=== PATIENT | female | born 1995 | race Hispanic/Latino ===

== ENCOUNTER 2021-03-03 09:00 | Inpatient (IN) | payer OTHER ==
[2021-03-03] MEDS ORDERED: LACTATED RINGERS 2,000 ML ONE (09:05)
--- NOTE | 2021-03-03 09:18 | Anesthesia Day of Surgery ---
Anesthesia Day of Surgery - Day of Surgery Patient Examined: Yes Patient H&P Reviewed: Yes Patient is NPO: Yes Beta Blockers: No Cardiac Clearance: No Pulmonary Clearance: No Alex's Test: N/A
[2021-03-03] MEDS ORDERED: ONDANSETRON 4 MG/2 ML INJ IV PRN (09:30)
[2021-03-03] MEDS ORDERED: PROMETHAZINE 25 MG TAB PO PRN (09:30)
[2021-03-03] MEDS ORDERED: NALOXONE 0.4 MG/1 ML INJ IV PRN ×2 (09:30→14:00)
[2021-03-03] MEDS ORDERED: NalbUPHINE 10 MG/1 ML INJ IV PRN (09:30)
[2021-03-03] MEDS ORDERED: HYDROmorphone 1 MG/1 ML INJ IV PRN (09:30)
[2021-03-03] MEDS ORDERED: PROMETHAZINE 25 MG RECT SUPP PR PRN (09:30)
[2021-03-03] MEDS ORDERED: OXYTOCIN DRIP 30,000 MILLIUNITS/500 ML BAG IV ONE (10:17)
[2021-03-03] MEDS ORDERED: METOCLOPRAMIDE 10 MG/2 ML INJ ONE (10:17)
[2021-03-03] MEDS ORDERED: GENTAMICIN/NS 80 MG/100 ML 100 ML IV ONE ×2 (10:17→10:18)
[2021-03-03] MEDS ORDERED: FAMOTIDINE 20 MG/2 ML INJ IV ONE ×2 (10:17→10:30)
[2021-03-03] MEDS ORDERED: BICITRA ORAL LIQD 30ML ONE (10:17)
[2021-03-03] MEDS ORDERED: LACTATED RINGERS 1,000 ML IV SCH (10:30)
[2021-03-03] MEDS ORDERED: METOCLOPRAMIDE 10 MG/2 ML INJ IV ONE (10:30)
[2021-03-03] MEDS ORDERED: GENTAMICIN 80 MG in SODIUM CHLORIDE 0.9% 100 ML IV ONE (10:30)
[2021-03-03] MEDS ORDERED: GENTAMICIN/NS 80 MG/100 ML 100 ML IV SCH (10:30)
[2021-03-03] MEDS ORDERED: BICITRA ORAL LIQD 30ML PO NR (10:30)
[2021-03-03 10:37] LABS: Basophils # (Auto) 0.1 K/mm3 (0.0-0.1); Eosinophils # (Auto) 0.1 K/mm3 (0.0-0.4); Eosinophils % (Auto) 0.5 % (0.0-4.3); Hematocrit 36.7 % (30.3-42.9); Lymphocytes # (Auto) 2.7 K/mm3 (1.2-5.4); Lymphocytes % (Auto) 22.2 % (13.4-35.0); Mean Corpuscular HGB Conc 33 % (30-34); Mean Corpuscular Volume 88 fl (79-97); Monocytes # (Auto) 0.9 K/mm3 (0.0-0.8); Monocytes % (Auto) 7.7 % (0.0-7.3); Platelet Count 230 K/mm3 (140-440); Red Blood Count 4.15 M/mm3 (3.65-5.03); Red Cell Distribution Width 13.5 % (13.2-15.2)
[2021-03-03] MEDS ORDERED: OXYTOCIN DRIP 30 UNITS/500 ML BAG IV SCH ×2 (11:00→14:00)
--- NOTE | 2021-03-03 11:17 | History and Physical Report ---
History of Present Illness Date of examination: 03/03/21 Date of admission: 03/03/21 09:00 Chief complaint: PREVIOUS History of present illness: The patient is a 25-year-old female 2 para 1-0-0-1. Last menstrual period 06/02/2020 with a EDC of 03/09/2021. She had 9 visits at the office she had a previous section she desires have to have a repeat section. At the office her blood type was O+ antibody screen was negative hematocrit was 40% rubella was immune VDRL was nonreactive Pap smear was normal urine culture negative hepatitis B was negative HIV test was negative platelet count was 2 urine 310,000. Vitamin D was 33.6 Chlamydia and gonorrhea tests were both negative she had an ultrasound done at 12.5 weeks on 08/25/2020 which is consistent with her due date her MSAFP was negative she had a repeat ultrasound done on 10/23/2020 consistent with 20.5 weeks gestation her VDRL was nonreactive gonorrhea was negative chlamydia was negative at 36 weeks group B strep test was positive HIV test was negative trichomonas test was negative. She has been taking clindamycin terconazole. Family medical history is positive for major depression in her mother hypertension in her maternal grandmother and mother all her surgery for her was a previous section and a tonsillectomy no medical problems for this patient Ketamine was age 11 mm. Her 28 days this is her second first was term was delivered by primary section in 2019 baby weighed 7.4 pounds under spinal because of heart tones decelerated and was done at this hospital. The patient denies substance abuse she does do vaping She is 39 weeks at this time. Past History Past Surgical History: tonsillectomy, section Family/Genetic History: hypertension (Depression), other (DE) Social history: no significant social history, single, smoking - Obstetrical History Expected Date of Delivery: 03/09/21 Actual Gestation: 39 Week(s) 1 Day(s) : 2 Para: 1 Hx # Term Pregnancies: 1 Number of Pregnancies: 0 Medications and Allergies Allergies Allergy/AdvReac Type Severity Reaction Status Date / Time Penicillins Allergy Swelling Unverified 10/11/19 03:18 Home Medications Medication Instructions Recorded Confirmed Last Taken Type HYDROcodone/APAP 5-325 [Moro 1 - 2 each PO Q4HR PRN #30 tablet 10/11/19 Unknown Rx 5/325] Active Meds: Active Medications Citric Acid/Sodium Citrate (Bicitra Oral Liqd 30ml) 30 ml PO ONCE NR Stop: 03/03/21 11:30 Last Admin: 03/03/21 11:00 Dose: 30 ml Documented by: Diphenhydramine HCl (Diphenhydramine 50 Mg/Ml Vial) 12.5 mg IV Q2H PRN PRN Reason: Itching Hydromorphone HCl (Hydromorphone 1 Mg/1 Ml Inj) 0.5 mg IV Q4H PRN PRN Reason: breakthrough pain > 7/10 Lactated Ringer's (Lactated Ringers) 1,000 mls @ 2,250 mls/hr IV PREOP ARTEMIO Stop: 03/04/21 10:57 Oxytocin/Sodium Chloride (Pitocin/Ns 30 Unit/500ml) 30 units in 500 mls @ 0 mls/hr IV TITR ARTEMIO; Protocol Clindamycin HCl (Cleocin 900 Mg/50 Ml) 900 mg in 50 mls @ 100 mls/hr IV PREOP NR; Protocol Stop: 03/03/21 15:00 Gentamicin Sulfate/Sodium Chloride (Gentamicin/Ns 80 Mg/100 Ml) 100 mls @ 200 mls/hr IV PREOP ARTEMIO Stop: 03/03/21 13:00 Nalbuphine HCl (Nalbuphine 10 Mg/1 Ml Inj) 2.5 mg IV Q2H PRN PRN Reason: Itching Naloxone HCl (Naloxone 0.4 Mg/1 Ml Inj) 0.2 mg IV Q2MIN PRN PRN Reason: Res Rate </= 8 or 02 SAT < 92% Ondansetron HCl (Ondansetron 4 Mg/2 Ml Inj) 4 mg IV Q8H PRN PRN Reason: Nausea And Vomiting Promethazine HCl (Promethazine 25 Mg Tab) 25 mg PO Q6H PRN PRN Reason: Nausea And Vomiting Promethazine HCl (Promethazine 25 Mg Rect Supp) 25 mg AK Q6H PRN PRN Reason: Nausea And Vomiting Review of Systems All systems: negative - Vital Signs Vital signs: Vital Signs Pulse BP 100 H 111/77 03/03/21 09:36 03/03/21 09:36 Temp Pulse Resp BP Pulse Ox 98.3 F 81 16 109/75 03/03/21 09:55 03/03/21 10:21 03/03/21 09:55 03/03/21 10:21 - Physical Exam Breasts: Cardiovascular: Regular rate, Normal S1, Normal S2 Lungs: Positive: Clear to auscultation Abdomen: Positive: normal appearance, soft, normal bowel sounds. Negative: distention, tenderness Genitourinary (Female): Positive: normal external genitalia Vulva: both: normal Vagina: Positive: normal moisture. Negative: discharge Cervix: Negative: lesion, discharge Uterus: Positive: normal size, enlarged, normal contour Adnexa: both: normal Anus/Rectum: Positive: normal perianal skin, heme negative. Negative: rectal mass, hemorrhoids Extremities: Positive: normal Deep Tendon Reflex Grade: Normal +2 - Obstetrical FHR: auscultation normal, category 1 Uterine Contraction Monitor Mode: Palpation Uterine Contraction Pattern: Absent Results Result Diagrams: 03/03/21 09:40 Abnormal lab results 03/03/21 Range/Units 09:40 WBC 12.2 H (4.5-11.0) K/mm3 [place] % (Auto) 7.7 H (0.0-7.3) % [place] # (Auto) 0.9 H (0.0-0.8) K/mm3 Seg Neutrophils # 8.4 H (1.8-7.7) K/mm3 All other labs normal. Assessment and Plan Previous section x1 at 39 weeks. Plan repeat low transverse section.
[2021-03-03] MEDS ORDERED: BUPIVACAINE/PF (0.5%) 5 MG/1 ML 30 ML VIAL INFILTRATI ONE (11:43)
[2021-03-03] MEDS ORDERED: dexAMETHasone 20 MG/5 ML VIAL ONE (11:43)
[2021-03-03] MEDS ORDERED: ONDANSETRON 4 MG/2 ML INJ ONE (11:43)
--- NOTE | 2021-03-03 12:28 | Anesthesia Consultation ---
Anesthesia Consult and Med Hx Date of service: 03/03/21 - Airway Anesthetic Teeth Evaluation: Good ROM Head & Neck: Adequate Mental/Hyoid Distance: Adequate Mallampati Class: Class II Intubation Access Assessment: Probably Good - Pulmonary Exam CTA: Yes - Cardiac Exam Cardiac Exam: RRR - Pre-Operative Health Status ASA Pre-Surgery Classification: ASA2 Proposed Anesthetic Plan: Spinal Nerve Block: TAP - Pulmonary Hx Smoking: Yes (Vaping) Hx Asthma: No Hx Respiratory Symptoms: No SOB: No COPD: No Hx Pneumonia: No Hx Sleep Apnea: No - Cardiovascular System Hx Hypertension: No Hx Coronary Artery Disease: No Hx Heart Attack/AMI: No Hx Angina: No Hx Percutaneous Transluminal Coronary Angioplasty (PTCA): No Hx Cardia Arrhythmia: No Hx Pacemaker: No Hx Internal Defibrillator: No Hx Valvular Heart Disease: No Hx Heart Murmur: No Hx Peripheral Vascular Disease: No - Central Nervous System Hx Neuromuscular Disorder: No Hx Seizures: No CVA: No Hx Back Pain: No Hx Psychiatric Problems: No - Gastrointestinal Hx Ulcer: No Hx Gastroesophageal Reflux Disease: Yes - Endocrine Hx Renal Disease: No Hx End Stage Renal Disease: No Hx Cirrhosis: No Hx Liver Disease: No Hx Insulin Dependent Diabetes: No Hx Non-Insulin Dependent Diabetes: No Hx Thyroid Disease: No Hx Hypothyroidism: No Hx Hyperthyroidism: No - Hematic Hx Anemia: No Hx Sickle Cell Disease: No - Other Systems Hx Alcohol Use: No Hx Substance Use: No Hx Cancer: No Hx Obesity: Yes
--- NOTE | 2021-03-03 12:29 | Progress Note ---
Spinal Anesthesia Block - Spinal Anesthesia Block Start Time: 11:52 Stop Time: 12:02 Performed by:: LORNA TADEO (Yrn MADDEN) Procedure: Spinal anesthesia block is being performed for [C/S]. H&P, labs have been reviewed. Patient's questions and concerns have been answered. Informed consent has been performed. Timeout has was performed. Patient in sitting position on side of bed. Sterile prep and drape was performed. 3 mL 1% lid ocaine skin wheal at L [3]-L [4]. Needle introducer advanced. 25-gauge spinal needle advanced, [+] CSF [-] blood. [Marcaine 10mg and Precedex 5mcg] Spinal dose was given. All needles removed. Patient tolerated procedure well.
[2021-03-03] MEDS ORDERED: ePHEDrine SULFATE 50 MG/1 ML INJ ONE (13:04)
[2021-03-03] MEDS ORDERED: PHENYLEPHRINE/NS 1,000 MCG/10 ML SYRINGE (OR USE) IV ONE (13:04)
[2021-03-03] MEDS ORDERED: KETOROLAC 30 MG/1 ML INJ ONE (13:10)
--- NOTE | 2021-03-03 13:24 | Procedure Note ---
Date of procedure: 03/03/21 Pre-op diagnosis: 39 weeks iup. PREVIOIUS Post-op diagnosis: same Procedure: This is Dr. Maldonado dictating operative note on Lisa Montez Indications for surgery was a previous section the uterine incision was hemostatic the anterior abdominal peritoneum was repaired running 2-0 Vicryl subcutaneous tissue repaired running 2-0 chromic 2-0 Vicryl subcutaneous tissue repaired running 2-0 chromic skin was repaired running subcuticular 4-0 Vicryl on a William needle and drape with Dermabond the patient tolerated procedure well she was then returned to recovery room in stable condition end of operative note on this patient. 39 weeks. A liveborn female infant was delivered time of surgery was 38 minutes Apgars 8 9 weight 7 pounds 13.8 ounces estimated blood loss 1087 cc urine production was 100 cc fluids IV was 1550 cc. Complications none . Procedure patient was taken to the operatory given adequate spinal anesthetic for the procedure she was then prepped and draped in usual manner she had an indwelling Lux catheter. She was then prepped and draped in usual fashion timeout was done and we all concurred. We created a Pfannenstiel incision along the previous Pfannenstiel incision and entered the abdominal cavity anatomical ly. Vesicouterine peritoneum was opened transversely with Metzenbaums bladder was bluntly and sharply dissected off the lower uterine segment a low transverse incision made in lower uterine segment with the scalpel. We use a Kiwi suction cup to help deliver the vertex this was delivered without incident oropharynx was suction nasopharynx suction. Cord was doubly clamped and cut fetus passed off the table to the nurses in attendance. Cord blood was obtained placenta was then delivered X abdominally uterine cavity was cleaned of debris membranes and tissue uterine incision was repaired with a running locking #0 chromic in a deep layer. Superficial layer of the myometrium was closed with a running locking #0 chromic suture. All instruments removed from abdominal care instrument count ne edle lap count was Anterior abdominal peritoneum was repaired running 2-0 chromic. Fascia was repaired running 0 Vicryl subcutaneous tissue repaired with running 2-0 Vicryl on a small needle skin was repaired running subcuticular 4-0 Vicryl on a William needle and drape with Dermabond patient tolerated procedure well she was then returned to recovery room in stable condition. Anesthesia: spinal Surgeon: LILIYA MALDONADO Estimated blood loss: other (1087) IV fluids: 1,550 Urine output: 100 Pathology: none Specimen disposition: discarded Condition: stable Disposition: PACU
--- NOTE | 2021-03-03 13:50 | Progress Note ---
Regional Anesthesia Block - Regional Anesthesia Block Start Time: 13:27 Stop Time: 13:35 Performed By:: LORNA TADEO (Yrn MADDEN) Procedure: Patient consented for TAP block for post surgical pain management. Patient identified, monitors placed, and time out performed. Mid axillary TAP identified bilaterally via ultrasound. Skin prepped bilaterally with [chlorhexidine] and [20g stimuplex] needle advanced to the TAP. 30ml [Marcaine 0.25% with 25mcg Precedex and Decadron 5mg] injected under ultrasound guidance on the [left] side. 30ml [Marcaine 0.25% with 25mcg Precedex and Decadron 5mg] injected under ultrasound guidance on the [right] side. Negative aspiration every 5mL, Patient tolerated the procedure well. No apparent complications seen.
[2021-03-03] MEDS ORDERED: WITCH HAZEL/ GLYCERIN PAD TP PRN (14:00)
[2021-03-03] MEDS ORDERED: HYDROcodone/ACETAMINOPHEN 5-325 MG TAB PO PRN (14:00)
[2021-03-03] MEDS: MORPHINE 4 MG/1 ML INJ IV PRN ×2 (16:04→20:48)
[2021-03-04 00:37] LABS: Hematocrit 32.8 % (30.3-42.9)
[2021-03-04] MEDS: MORPHINE 4 MG/1 ML INJ IV PRN (05:59)
[2021-03-04] MEDS: IBUPROFEN 800 MG TAB PO PRN ×3 (07:40→22:06)
[2021-03-04] MEDS: FERROUS SULFATE 325 MG TAB PO SCH (09:37)
[2021-03-04] MEDS: LANOLIN/ZINC/DIMETHICONE (LANSINOH) 7 GM TP PRN (09:37)
--- NOTE | 2021-03-04 11:13 | Progress Note ---
Assessment and Plan A: POD #1 Stable P: Follow Routine PostOp Orders Subjective - Subjective Date of service: 03/04/21 Patient reports: appetite normal, voiding normally, pain well controlled, flatus, ambulating normally : doing well, bottle feeding (and ) Objective - Vital Signs Latest vital signs: Vital Signs Temp Pulse Resp BP BP Pulse Ox 03/04/21 09:37 18 03/04/21 08:02 97.3 F L 79 18 109/76 100 03/04/21 05:59 18 03/04/21 04:20 98.2 F 76 18 108/64 98 03/04/21 00:16 97.5 F L 90 18 106/68 95 03/03/21 23:55 18 03/03/21 20:48 18 03/03/21 20:36 97.8 F 85 18 119/69 96 03/03/21 15:11 97.6 F 65 20 137/75 96 03/03/21 14:45 97.6 F 68 16 125/50 97 03/03/21 14:30 70 15 135/79 96 03/03/21 14:20 97.5 F L 62 14 131/58 97 03/03/21 14:05 74 13 116/65 97 03/03/21 13:50 97.5 F L 74 12 106/59 97 03/03/21 13:35 63 20 106/61 97 03/03/21 13:30 65 14 108/60 97 03/03/21 13:25 74 18 102/46 93 03/03/21 13:21 97.6 F 84 17 112/40 93 Intake and Output 03/03/21 03/04/21 03/04/21 22:59 06:59 14:59 Output Total 850 1800 Balance -850 -1800 Output: Urine 850 1800 Indwelling Catheter 850 1800 Other: Total, Output Amount 850 1800 - Exam Breasts: Present: normal Cardiovascular: Present: Regular rate Lungs: Present: Clear to auscultation, Normal air movement Abdomen: Present: normal appearance, soft, normal bowel sounds Uterus: Present: normal, firm, fundal height below umbilicus Extremities: Present: normal Incision: Present: normal, dry, intact
[2021-03-04] MEDS: HYDROcodone/ACETAMINOPHEN 5-325 MG TAB PO PRN ×3 (14:22→22:46)
--- NOTE | 2021-03-04 16:44 | Post Anesthesia Evaluation ---
- Post Anesthesia Evaluation Patient Participated: Yes Airway Patent: Yes Stable Respiratory Function: Yes Nausea/Vomiting: No Temp > 96.8F: Yes Pain Manageable: Yes Adequeate Hydration: Yes Anesthesia Complications: No Block Receding Appropriately: Yes Patient on Ventilator: No
[2021-03-05] MEDS: HYDROcodone/ACETAMINOPHEN 5-325 MG TAB PO PRN ×3 (04:38→19:55)
[2021-03-05] MEDS ORDERED: TETANUS,DIPH,PERTUSS(ACELL) VACCINE 0.5 ML SYRINGE IM ONE (06:19)
[2021-03-05] MEDS: IBUPROFEN 800 MG TAB PO PRN ×2 (08:44→18:05)
[2021-03-05] MEDS: FERROUS SULFATE 325 MG TAB PO SCH (08:44)
--- NOTE | 2021-03-05 10:39 | Progress Note ---
Assessment and Plan POD #2 A: S/P repeat LTCS p: Continue routine pp care Encourage ambulation D/c home tomm if stable Subjective - Subjective Date of service: 03/05/21 Principal diagnosis: s/p repeat LTCS Patient reports: appetite normal, voiding normally, pain well controlled, flatus, ambulating normally [place]: doing well, bottle feeding Objective - Vital Signs Latest vital signs: Vital Signs Temp Pulse Resp BP BP Pulse Ox 03/05/21 08:25 97.7 F 91 H 20 108/66 03/05/21 01:17 98.0 F 92 H 18 105/65 95 03/04/21 18:22 18 03/04/21 16:38 98.0 F 97 H 18 109/60 97 03/04/21 16:12 18 03/04/21 14:22 18 Intake and Output 03/04/21 03/05/21 03/05/21 22:59 06:59 14:59 Intake Total 240 600 244 Balance 240 600 244 Intake: Oral 240 600 244 Other: Total, Intake Amount 240 120 244 # Voids Void 1 1 1 - Exam Breasts: Present: normal Abdomen: Present: normal appearance, soft, normal bowel sounds Vulva: both: normal Uterus: Present: normal, firm, fundal height below umbilicus Extremities: Present: normal Incision: Present: normal, dry, intact
--- NOTE | 2021-03-05 11:59 | Consultation ---
History of Present Illness - Reason for Consult Consult date: 03/05/21 Reason for consult: depression - History of Present Psychiatric Illness Billie Montez is a 25y/o female patient who was admitted for childbirth. During my interview with her the patient she is holding her . The baby's father is at bedside asleep. She gives me permission to speak with him there. The patient says she has a history of depression. The patient says she takes zoloft for her depression. She says it was working to help her initially but seems now like it's not as effective. She says it is given by her OB doctor. She denies any SI/HI or hallucinations of any kind. She denies every seeing a psychiatrist in the past or ever being admitted to a psych hospital. PAST PSYCHIATRIC HISTORY Diagnoses: Depression Suicide attempts or Self-harm behavior: Denies Prior psychiatric hospitalizations: Denies Substance Abuse history: Denies Previous psychiatric medications tried: Zoloft Outpatient treatment: Denies PAST MEDICAL HISTORY: None reported Family Psychiatric History: None reported or documented SOCIAL HISTORY Marital Status: Single Living Arrangements: with grandmother and child's father Employment Status: Employed Access to guns/weapons: Denies Education: high school History of Abuse: none reported Legal History: none REVIEW OF SYSTEMS Constitutional: Negative for weight loss ENT: Negative for stridor Respiratory: Negative for cough or hemoptysis All other systems reviewed and are negative MENTAL STATUS EXAMINATION General Appearance and Behavior: Age appropriate, not wearing appropriate clothes, good eye contact, calm and cooperative, polite with questioning. Cooperation: Engaged Psychomotor Behavior: Psychomotor normal Mood: good Affect and affective range: Euthymic Thought Process: Goal directed Thought Content: None Speech: Normal tone and pace Suicidal Ideation: Denies Homicidal Ideation: Denies Hallucinations: Denies Delusions: None elicited Insight and Judgment: Limited insight and judgment Memory: Normal Attention: Undivided attention impaired Orientation: Alert, oriented x 4 Assessment: Major Depressive Disorder Treatment Plan Continue Zoloft. Discuss with outpatient provider about increase if needed in the future. Risks, benefits and alternatives of medications discussed with the patient, questions answered and consent obtained from patient. PSYCHOTHERAPY: Supportive psychotherapy provided MEDICAL: Per primary team DELIRIUM PRECAUTIONS: Please re-orient patient frequently, keep lights on during the day, and minimize benzodiazepines and opiates as these medications could worsen patient's confusion. INSTRUCTIONAL PARAPROFESSIONAL: per primary DISPOSITION: Do not recommend acute inpatient psychiatric hospitalization at this time. The patient is to abstain from all illicit drug use FOLLOW-UP: will sign off Thank you for the consult. Please contact with any questions and/or concerns. Case discussed with Dr. Scruggs who agrees with current disposition Medications and Allergies Allergies Allergy/AdvReac Type Severity Reaction Status Date / Time Penicillins Allergy Swelling Verified 03/03/21 16:02 Home Medications Medication Instructions Recorded Confirmed Last Taken Type HYDROcodone/APAP 5-325 [Alexander 1 - 2 each PO Q4HR PRN #30 tablet 10/11/19 03/03/21 Unknown Rx 5/325] HYDROcodone/APAP 5-325 [Alexander 1 each PO Q4HR PRN 7 Days #25 03/03/21 Unknown Rx 5/325] tablet Active Meds: Active Medications Hydrocodone Bitart/Acetaminophen (Hydrocodone/Acetaminophen 5-325 Mg Tab) 2 each PO Q4H PRN PRN Reason: Pain, Moderate (4-6) Last Admin: 03/05/21 04:38 Dose: 2 each Documented by: Diphenhydramine HCl (Diphenhydramine 50 Mg/Ml Vial) 12.5 mg IV Q2H PRN PRN Reason: Itching Ferrous Sulfate (Ferrous Sulfate 325 Mg Tab) 325 mg PO QDAY ARTEMIO Last Admin: 03/05/21 08:44 Dose: 325 mg Documented by: Hydromorphone HCl (Hydromorphone 1 Mg/1 Ml Inj) 0.5 mg IV Q4H PRN PRN Reason: breakthrough pain > 7/10 Last Admin: 03/03/21 23:55 Dose: 0.5 mg Documented by: Oxytocin/Sodium Chloride (Pitocin/Ns 30 Unit/500ml) 30 units in 500 mls @ 0 mls/hr IV TITR ARTEMIO; Protocol Oxytocin/Sodium Chloride (Pitocin/Ns 30 Unit/500ml) 30 units in 500 mls @ 40 mls/hr IV TITR ARTEMIO; Protocol Ibuprofen (Ibuprofen 800 Mg Tab) 800 mg PO Q6H PRN PRN Reason: Pain, Mild (1-3) Last Admin: 03/05/21 08:44 Dose: 800 mg Documented by: Morphine Sulfate (Morphine 4 Mg/1 Ml Inj) 4 mg IV Q4H PRN PRN Reason: Pain , Severe (7-10) Last Admin: 03/04/21 05:59 Dose: 4 mg Documented by: Multi-Ingredient Ointment (Lanolin/Zinc/Dimethicone (Lansinoh) 7 Gm) 1 applic TP PRN PRN PRN Reason: dryness/cracking Last Admin: 03/04/21 09:37 Dose: 1 applic Documented by: Nalbuphine HCl (Nalbuphine 10 Mg/1 Ml Inj) 2.5 mg IV Q2H PRN PRN Reason: Itching Naloxone HCl (Naloxone 0.4 Mg/1 Ml Inj) 0.1 mg IV Q2MIN PRN PRN Reason: Res Rate </= 8 or 02 SAT < 92% Ondansetron HCl (Ondansetron 4 Mg/2 Ml Inj) 4 mg IV Q8H PRN PRN Reason: Nausea And Vomiting Promethazine HCl (Promethazine 25 Mg Tab) 25 mg PO Q6H PRN PRN Reason: Nausea And Vomiting Promethazine HCl (Promethazine 25 Mg Rect Supp) 25 mg MD Q6H PRN PRN Reason: Nausea And Vomiting Sodium Chloride (Sodium Chloride 0.9% 10 Ml Flush Syringe) 10 ml IV PRN PRN PRN Reason: flush Witch Catherine/Glycerin (Witch Catherine/ Glycerin Pad) 1 each TP PRN PRN PRN Reason: Hemorrhoids/cleansing/soothing Mental Status Exam - Vital signs Last Vital Signs Temp 97.7 F 03/05/21 08:25 Pulse 91 H 03/05/21 08:25 Resp 20 03/05/21 08:25 BP 108/66 03/05/21 08:25 Pulse Ox 95 03/05/21 01:17 Results Result Diagrams: 03/04/21 00:17 All other labs normal.
[2021-03-05] MEDS ORDERED: FLU VACC QUAD 2020-2021 (6 months +)/PF 60 0.5 ML SYRINGE IM ONE (12:00)
[2021-03-06] MEDS: HYDROcodone/ACETAMINOPHEN 5-325 MG TAB PO PRN ×4 (00:10→17:37)
[2021-03-06] MEDS: IBUPROFEN 800 MG TAB PO PRN ×3 (03:59→20:39)
[2021-03-06] MEDS: FERROUS SULFATE 325 MG TAB PO SCH (10:38)
--- NOTE | 2021-03-06 15:43 | Progress Note ---
Assessment and Plan A: /postop day 3 S/P repeat LTCS. Depression. Mild tachycardia. P: CBC, CMP, urinalysis. Start Zoloft. Monitor VS. EKG if pulse still high. Anticipate discharge home tomorrow morning if VSS and pt. continues to do well. Subjective - Subjective Date of service: 03/06/21 Principal diagnosis: s/p repeat LTCS Interval history: Seen and cleared by psych. Has depression and has been taking Zoloft at home; patient states she has this medication at home. Patient reports: appetite normal, voiding normally, pain well controlled, flatus, ambulating normally, no dizzy ambulation, no nauseated : doing well Objective - Vital Signs Latest vital signs: Vital Signs Temp Pulse Resp BP Pulse Ox 03/06/21 13:09 98.0 F 99 H 18 122/65 98 03/06/21 08:24 98.2 F 123 H 18 123/70 98 03/06/21 03:59 20 03/06/21 02:00 88 03/06/21 00:10 18 03/05/21 23:47 99.0 F 120 H 20 125/80 100 03/05/21 19:55 18 Intake and Output 03/05/21 03/06/21 03/06/21 23:59 07:59 15:59 Intake Total 480 Balance 480 Intake: Oral 120 Intake, Free Water 360 Other: Total, Intake Amount 120 # Voids Void 1 1 - Exam Cardiovascular: Present: Regular rate Lungs: Present: Clear to auscultation Abdomen: Present: normal appearance, soft, normal bowel sounds. Absent: distention, tenderness, guarding, rigidity Uterus: Present: normal, firm, fundal height below umbilicus. Absent: bogginess, tenderness Extremities: Present: normal, edema (mild bilateral pedal edema). Absent: tenderness Incision: Present: normal, dry, intact
[2021-03-06 16:39] LABS: Basophils # (Auto) 0.1 K/mm3 (0.0-0.1); Basophils % (Auto) 0.4 % (0.0-1.8); Eosinophils # (Auto) 0.2 K/mm3 (0.0-0.4); Eosinophils % (Auto) 1.3 % (0.0-4.3); Hematocrit 33.8 % (30.3-42.9); Hemoglobin 11.2 gm/dl (10.1-14.3); Lymphocytes # (Auto) 2.4 K/mm3 (1.2-5.4); Lymphocytes % (Auto) 13.8 % (13.4-35.0); Mean Corpuscular HGB Conc 33 % (30-34); Mean Corpuscular Volume 89 fl (79-97); Monocytes # (Auto) 1.1 K/mm3 (0.0-0.8); Monocytes % (Auto) 6.4 % (0.0-7.3); Platelet Count 257 K/mm3 (140-440); Red Blood Count 3.82 M/mm3 (3.65-5.03); Red Cell Distribution Width 13.6 % (13.2-15.2)
[2021-03-06 16:59] LABS: Alanine Aminotransferase 9 units/L (7-56); Albumin 3.2 g/dL (3.9-5); Blood Urea Nitrogen 9 mg/dL (7-17); Calcium 8.7 mg/dL (8.4-10.2); Hemolysis Index 5
[2021-03-06 17:00] LABS: BUN/Creatinine Ratio 15
[2021-03-06 18:14] LABS: Bilirubin,Urine NEG (Negative); Blood,Urine SM (Negative); Color,Urine Yellow (Yellow); Mucus,Urine FEW /HPF; Protein,Urine <15 mg/dL mg/dL (Negative); Urobilinogen,Urine < 2.0 mg/dL (<2.0)
--- NOTE | 2021-03-06 18:50 | Event Note ---
Date: 03/06/21 WBC elevated. Urine culture ordered. Spoke with Dr. Julian who recommended triple antibiotics. Ordered Clinda, Gent, and Vanc. Spoke with pt. re: plan of care.
[2021-03-06] MEDS ORDERED: GENTAMICIN 100 MG in SODIUM CHLORIDE 0.9% 100 ML IV SCH (20:00)
[2021-03-06] MEDS: D5W/LACTATED RINGERS 1,000 ML IV SCH (22:55)
[2021-03-07] MEDS: VANCOMYCIN/NS 1 GM/250 ML 1 GM/250 ML BAG IV SCH ×2 (00:29→18:56)
[2021-03-07] MEDS: diphenhydrAMINE 50 MG/ML VIAL IV PRN ×2 (01:17→18:58)
[2021-03-07] MEDS: GENTAMICIN/NS 100 MG/100 ML 100 MG/100 ML BAG IV SCH ×3 (02:12→17:50)
--- NOTE | 2021-03-07 05:15 | Progress Note ---
Assessment and Plan POD#4 c/section, maternal depression and still with tacchycardia 1. Continue routine post op care 2. Continue zoloft med 3. Repeat CBC today with leucocytosis 4. Consider discharge home tomorrow when tacchycardia resolves 5. Pt counseled to take pain med and I will adjust upwards as needed All questions encouraged and answered Subjective Date of service: 03/07/21 Principal diagnosis: s/p repeat LTCS; POD#4 Interval history: pt admits to flatus, minimal vag bleed, denies sob or chest pain or palpitations. pt c/o pain along the incision site. Pt also states that she has discomfort with voiding and sometimes it feels like pressure. pt is breast and bottle feeding. Pt denies SI/HI/AVH and taking her psychiatric med Objective - Constitutional Vitals: Vital Signs - 12hr 03/06/21 03/06/21 03/06/21 17:22 20:39 20:42 Temperature 98.9 F Pulse Rate 111 H 134 H Respiratory 18 14 Rate Blood Pressure 126/78 O2 Sat by Pulse 100 98 Oximetry 03/07/21 00:38 Temperature 98.1 F Pulse Rate 117 H Respiratory 20 Rate Blood Pressure 104/65 O2 Sat by Pulse 96 Oximetry General appearance: Present: no acute distress - Neck Neck: normal ROM - Respiratory Respiratory effort: normal - Breasts Breasts: normal - Cardiovascular Details: mild taccycardia Extremities: No edema - Gastrointestinal General gastrointestinal: Present: soft, other (Incision with clean and dry with dermabond and without erythema) - Integumentary Integumentary: warm, dry - Neurologic Neurologic: moves all extremities - Psychiatric Psychiatric: cooperative - Labs CBC & Chem 7: 03/06/21 16:18 03/06/21 16:18 Labs: Abnormal lab results 03/06/21 03/06/21 Range/Units 16:18 16:18 WBC 17.6 H (4.5-11.0) K/mm3 [place] # (Auto) 1.1 H (0.0-0.8) K/mm3 Seg Neutrophils % 78.1 H (40.0-70.0) % Seg Neutrophils # 13.7 H (1.8-7.7) K/mm3 Total Protein 6.1 L (6.3-8.2) g/dL Albumin 3.2 L (3.9-5) g/dL Medications & Allergies - Medications Allergies/Adverse Reactions: Allergies Penicillins Allergy (Verified 03/03/21 16:02) Swelling Home Medications: Home Medications Medication Instructions Recorded Confirmed Last Taken Type HYDROcodone/APAP 5-325 [[place] 1 - 2 each PO Q4HR PRN #30 tablet 10/11/19 03/03/21 Unknown Rx 5/325] HYDROcodone/APAP 5-325 [[place] 1 each PO Q4HR PRN 7 Days #25 03/03/21 Unknown Rx 5/325] tablet Active Medications: Generic Name Dose Route Start Last Admin Trade Name Freq PRN Reason Stop Dose Admin Hydrocodone Bitart/Acetaminophen 2 each 03/04/21 12:23 03/06/21 17:37 Hydrocodone/Acetaminophen 5-325 Mg Tab PO 2 each Q4H PRN Administration Pain, Moderate (4-6) Diphenhydramine HCl 12.5 mg 03/03/21 09:30 03/07/21 01:17 Diphenhydramine 50 Mg/Ml Vial IV 12.5 mg Q2H PRN Administration Itching Ferrous Sulfate 325 mg 03/04/21 10:00 03/06/21 10:38 Ferrous Sulfate 325 Mg Tab PO 325 mg QDAY ARTEMIO Administration Hydromorphone HCl 0.5 mg 03/03/21 09:30 03/03/21 23:55 Hydromorphone 1 Mg/1 Ml Inj IV 0.5 mg Q4H PRN Administration breakthrough pain > 7/10 Oxytocin/Sodium Chloride 30 units in 500 mls @ 0 mls/hr 03/03/21 11:00 Pitocin/Ns 30 Unit/500ml IV TITR ARTEMIO Protocol As Directed Oxytocin/Sodium Chloride 30 units in 500 mls @ 40 mls/hr 03/03/21 14:00 Pitocin/Ns 30 Unit/500ml IV TITR ARTEMIO Protocol Clindamycin HCl 900 mg in 50 mls @ 100 mls/hr 03/06/21 20:00 03/06/21 22:55 Cleocin 900 Mg/50 Ml IV 100 mls/hr Q8H ARTEMIO Administration Protocol Vancomycin HCl 1 gm in 250 mls @ 167.007 mls/hr 03/06/21 21:00 03/07/21 00:29 Vancomycin/Ns 1 Gm/250 Ml IV 167.007 mls/hr Q12H ARTEMIO Administration Protocol Gentamicin Sulfate/Sodium Chloride 100 mg in 100 mls @ 200 mls/hr 03/06/21 22:00 03/07/21 02:12 Gentamicin/Ns 100 Mg/100 Ml IV 200 mls/hr Q8HR ARTEMIO Administration Dextrose/Lactated Ringer's 1,000 mls @ 125 mls/hr 03/06/21 22:00 03/06/21 22:55 D5lr IV 125 mls/hr DIRECT ARTEMIO Administration Ibuprofen 800 mg 03/03/21 14:00 03/06/21 20:39 Ibuprofen 800 Mg Tab PO 800 mg Q6H PRN Administration Pain, Mild (1-3) Morphine Sulfate 4 mg 03/03/21 14:00 03/04/21 05:59 Morphine 4 Mg/1 Ml Inj IV 4 mg Q4H PRN Administration Pain , Severe (7-10) Multi-Ingredient Ointment 1 applic 03/03/21 14:00 03/04/21 09:37 Lanolin/Zinc/Dimethicone (Lansinoh) 7 Gm TP 1 applic PRN PRN Administration dryness/cracking Nalbuphine HCl 2.5 mg 03/03/21 09:30 Nalbuphine 10 Mg/1 Ml Inj IV Q2H PRN Itching Naloxone HCl 0.1 mg 03/03/21 14:00 Naloxone 0.4 Mg/1 Ml Inj IV Q2MIN PRN Res Rate </= 8 or 02 SAT < 92% Ondansetron HCl 4 mg 03/03/21 09:30 Ondansetron 4 Mg/2 Ml Inj IV Q8H PRN Nausea And Vomiting Promethazine HCl 25 mg 03/03/21 09:30 Promethazine 25 Mg Tab PO Q6H PRN Nausea And Vomiting Promethazine HCl 25 mg 03/03/21 09:30 Promethazine 25 Mg Rect Supp SD Q6H PRN Nausea And Vomiting Sodium Chloride 10 ml 03/03/21 14:00 Sodium Chloride 0.9% 10 Ml Flush Syringe IV PRN PRN flush Witch Catherine/Glycerin 1 each 03/03/21 14:00 Witch Catherine/ Glycerin Pad TP PRN PRN Hemorrhoids/cleansing/soothing
[2021-03-07] MEDS: IBUPROFEN 800 MG TAB PO PRN ×3 (05:34→23:51)
[2021-03-07 06:38] LABS: Basophils # (Auto) 0.1 K/mm3 (0.0-0.1); Basophils % (Auto) 0.4 % (0.0-1.8); Eosinophils # (Auto) 0.2 K/mm3 (0.0-0.4); Eosinophils % (Auto) 1.2 % (0.0-4.3); Hematocrit 31.2 % (30.3-42.9); Hemoglobin 10.3 gm/dl (10.1-14.3); Lymphocytes % (Auto) 13.5 % (13.4-35.0); Mean Corpuscular HGB Conc 33 % (30-34); Mean Corpuscular Volume 88 fl (79-97); Monocytes # (Auto) 0.9 K/mm3 (0.0-0.8); Platelet Count 277 K/mm3 (140-440); Red Blood Count 3.54 M/mm3 (3.65-5.03); Red Cell Distribution Width 13.6 % (13.2-15.2)
[2021-03-07] MEDS: FERROUS SULFATE 325 MG TAB PO SCH ×2 (10:30→13:16)
[2021-03-07] MEDS: SERTRALINE 25 MG TAB PO SCH (13:15)
--- NOTE | 2021-03-07 18:19 | Event Note ---
Date: 03/07/21 Wrong pt counseled for transfusion and pt's nurse to bedside present when I told the patient her hgb is normal and no transfusion needed as previously stated. All questions encouraged and answered.
[2021-03-07] MEDS: HYDROcodone/ACETAMINOPHEN 5-325 MG TAB PO PRN (20:13)
[2021-03-08] MEDS: GENTAMICIN/NS 100 MG/100 ML 100 MG/100 ML BAG IV SCH ×3 (03:15→13:18)
[2021-03-08] MEDS: IBUPROFEN 800 MG TAB PO PRN ×2 (06:48→20:22)
[2021-03-08] MEDS: VANCOMYCIN/NS 1 GM/250 ML 1 GM/250 ML BAG IV SCH ×2 (08:07→20:21)
[2021-03-08 09:14] LABS: Basophils # (Auto) 0.1 K/mm3 (0.0-0.1); Basophils % (Auto) 0.6 % (0.0-1.8); Eosinophils # (Auto) 0.2 K/mm3 (0.0-0.4); Eosinophils % (Auto) 1.8 % (0.0-4.3); Hematocrit 29.3 % (30.3-42.9); Hemoglobin 9.7 gm/dl (10.1-14.3); Lymphocytes % (Auto) 16.6 % (13.4-35.0); Mean Corpuscular HGB Conc 33 % (30-34); Mean Corpuscular Volume 88 fl (79-97); Monocytes % (Auto) 7.9 % (0.0-7.3); Platelet Count 275 K/mm3 (140-440); Red Blood Count 3.35 M/mm3 (3.65-5.03); Red Cell Distribution Width 13.6 % (13.2-15.2)
[2021-03-08] MEDS: HYDROcodone/ACETAMINOPHEN 5-325 MG TAB PO PRN ×3 (09:21→22:49)
[2021-03-08] MEDS: LANOLIN/ZINC/DIMETHICONE (LANSINOH) 7 GM TP PRN (09:22)
[2021-03-08] MEDS: FERROUS SULFATE 325 MG TAB PO SCH (10:08)
[2021-03-08] MEDS: SERTRALINE 25 MG TAB PO SCH (10:08)
--- NOTE | 2021-03-08 11:55 | Progress Note ---
Assessment and Plan A: /postop day 5 S/P repeat LTCS. Anemia. Depression. Leukocytosis. Mild tachycardia. P: Await urine culture results. Continue IV antibiotics. Repeat CBC tomorrow AM. Continue to monitor VS. Continue Zoloft for depression. Continue iron supplementation. Patient to ambulate. Subjective - Subjective Date of service: 03/08/21 Principal diagnosis: s/p repeat LTCS; POD#5 Interval history: Receiving IV antibiotics. Has leukocytosis. Called lab and urine culture still pending. Taking Zoloft for depression; was seen and cleared by psych. Taking iron for anemia. Patient reports: appetite normal, voiding normally, pain well controlled, flatus, ambulating normally, no dizzy ambulation, no nauseated [place]: doing well Objective - Vital Signs Latest vital signs: Vital Signs Temp Pulse Resp BP BP Pulse Ox 03/08/21 08:43 97.9 F 99 H 18 111/71 99 03/07/21 23:40 98.2 F 101 H 20 113/76 99 03/07/21 16:00 98.5 F 92 H 19 123/62 100 Intake and Output 03/07/21 03/08/21 03/08/21 23:59 07:59 15:59 Intake Total 590 50 Balance 590 50 Intake: IV 350 50 CLEOCIN 900 MG/50 mL 900 50 mg In 50 ml @ 100 mls/hr IV Q8H ARTEMIO Rx#:[id number] GENTAMICIN/NS 100 MG/100 100 ML 100 mg In 100 ml @ 200 mls/hr IV Q8HR ARTEMIO Rx#: [id number] VANCOMYCIN/NS 1 GM/250 ML 250 1 gm In 250 ml @ 167.007 mls/hr IV Q12H ARTEMIO Rx#: [id number] Oral 240 Other: Total, Intake Amount 240 # Voids Void 1 1 - Exam Cardiovascular: Present: Regular rate Lungs: Present: Clear to auscultation Abdomen: Present: normal appearance, soft, normal bowel sounds. Absent: distention, tenderness, guarding, rigidity Uterus: Present: normal, firm, fundal height below umbilicus. Absent: bogginess, tenderness Extremities: Present: normal. Absent: tenderness, edema Incision: Present: normal, dry, intact - Labs Labs: Abnormal lab results 03/08/21 Range/Units 08:41 WBC 12.2 H (4.5-11.0) K/mm3 RBC 3.35 L (3.65-5.03) M/mm3 Hgb 9.7 L (10.1-14.3) gm/dl Hct 29.3 L (30.3-42.9) % [place] % (Auto) 7.9 H (0.0-7.3) % [place] # (Auto) 1.0 H (0.0-0.8) K/mm3 Seg Neutrophils % 73.1 H (40.0-70.0) % Seg Neutrophils # 8.9 H (1.8-7.7) K/mm3
[2021-03-08] MEDS: D5W/LACTATED RINGERS 1,000 ML IV SCH (13:10)
[2021-03-08] MEDS: CLINDAMYCIN IV SCH (18:08)
[2021-03-08] MEDS: DEXTROSE 5% IV SCH (18:08)
[2021-03-08] MEDS: WATER IV SCH (18:08)
[2021-03-09 08:27] LABS: Basophils # (Auto) 0.1 K/mm3 (0.0-0.1); Basophils % (Auto) 0.6 % (0.0-1.8); Eosinophils # (Auto) 0.1 K/mm3 (0.0-0.4); Eosinophils % (Auto) 1.3 % (0.0-4.3); Hematocrit 31.6 % (30.3-42.9); Hemoglobin 10.8 gm/dl (10.1-14.3); Lymphocytes % (Auto) 17.7 % (13.4-35.0); Mean Corpuscular HGB Conc 34 % (30-34); Mean Corpuscular Volume 88 fl (79-97); Monocytes # (Auto) 0.8 K/mm3 (0.0-0.8); Monocytes % (Auto) 7.3 % (0.0-7.3); Platelet Count 343 K/mm3 (140-440); Red Blood Count 3.61 M/mm3 (3.65-5.03); Red Cell Distribution Width 13.6 % (13.2-15.2)
[2021-03-09 08:50] LABS: Alanine Aminotransferase 10 units/L (7-56); Albumin 3.3 g/dL (3.9-5); Blood Urea Nitrogen 8 mg/dL (7-17); Calcium 8.5 mg/dL (8.4-10.2); Hemolysis Index 1
[2021-03-09 08:51] LABS: BUN/Creatinine Ratio 13
[2021-03-09] MEDS: DEXTROSE 5% IV SCH (10:54)
[2021-03-09] MEDS: WATER IV SCH (10:54)
[2021-03-09] MEDS: CLINDAMYCIN IV SCH (10:54)
[2021-03-09] MEDS: HYDROcodone/ACETAMINOPHEN 5-325 MG TAB PO PRN (10:58)
[2021-03-09] MEDS: FERROUS SULFATE 325 MG TAB PO SCH (10:58)
[2021-03-09] MEDS: SERTRALINE 25 MG TAB PO SCH (10:59)
--- NOTE | 2021-03-09 11:44 | Discharge Summary ---
Providers - Providers Date of Admission: 03/03/21 09:00 Date of discharge: 03/09/21 Attending physician: LILIYA MALDONADO MD 03/04/21 18:44 Consult to Mental Health [CONS] Routine Reason For Exam: Marcella score 15 Primary care physician: LILIYA MALDONADO MD Hospitalization Reason for admission: section Delivery: Procedure: section, repeat low transverse Incision: normal complications: other (anemia, fever) Discharge diagnosis: other (repeat LT CSECTION., ANEMIA, FEVER) Hospital course: PT HAD ANEMIA. TX WITH PO IRON. FEVER. PT TREATED WITH TRIPLE ATB. PT IS AFEBRILE AND READY FOR D/C. Condition at discharge: Good Disposition: DC-01 TO HOME OR SELFCARE - Discharge Diagnoses (1) Anemia due to blood loss Status: Acute (2) S/P primary low transverse Status: Acute (3) Term delivered Status: Acute Plan - Discharge Medications Prescriptions: HYDROcodone/APAP 5-325 [[place] 5/325] 1 each PO Q4HR PRN 7 Days #25 tablet PRN Reason: Pain oxyCODONE /ACETAMINOPHEN [Percocet 5/325] 1 tab PO Q4HR PRN 21 Days #30 tab PRN Reason: Pain , Severe (7-10) - Provider Discharge Summary Additional instructions: [] Smoking cessation referral if applicable(refer to patient education folder for contact #) [] Refer to [facility]'s [facility] Booklet Call your doctor immediately for: * Fever > 100.5 * Heavy vaginal bleeding ( >1 pad per hour) * Severe persistent headache * Shortness of breath * Reddened, hot, painful area to leg or breast * Drainage or odor from incision. * Keep incision clean and dry at all times and follow doctor's instructions regarding bathing/showering - Follow up plan Forms: [facility] Discharge Summary
[2021-03-09 13:32] VITALS: BP 136/76
== END 2021-03-09 13:37 | disposition home or self-care (01) | DRG 765 ==
LOC: APU 09:00 → OB 15:31
PROC: 10D00Z1 Extraction of Products of Conception, Low, Open Approach (ICD-10-PCS; principal; 2021-03-03)
PROC: 3E0234Z Introduction of Serum, Toxoid and Vaccine into Muscle, Percutaneous Approach (ICD-10-PCS; 2021-03-05)
DX: O34.211 Maternal care for low transverse scar from previous cesarean delivery (principal); D62 Acute posthemorrhagic anemia; D72.829 Elevated white blood cell count, unspecified; R00.0 Tachycardia, unspecified; O90.81 Anemia of the puerperium; Z20.822 Contact with and (suspected) exposure to COVID-19; O99.344 Other mental disorders complicating childbirth; F32.9 Major depressive disorder, single episode, unspecified; O99.62 Diseases of the digestive system complicating childbirth; K21.9 Gastro-esophageal reflux disease without esophagitis; O90.89 Other complications of the puerperium, not elsewhere classified; Z23 Encounter for immunization; Z37.0 Single live birth; Z3A.39 39 weeks gestation of pregnancy; Z88.0 Allergy status to penicillin; Z81.8 Family history of other mental and behavioral disorders; Z82.49 Family history of ischemic heart disease and other diseases of the circulatory system
CPT/HCPCS: 36415; 80053; 81001; 85014; 85018; 85025; 86592; 86850; 86900; 86901; 87086; 90471; 90715; 99211; G0378; A6250; G0463; J1100; J1170; J1200; J1580; J1885; J2270; J2370; J2405; J2765; J3370; J3490; J7120; J7121; U0003